=== PATIENT | female | born 1985 | race Caucasian/White ===

== ENCOUNTER 2025-07-21 21:24 | Emergency (ER) | payer SELFPAY ==
[2025-07-21 21:27] VITALS: BP 137/90; PULSE 87; RESP 16; TEMP 37.1; O2SAT 95; BMI 32.6
[2025-07-21 22:10] LABS: IDNOW Serial# 6674DD1D; Strep A Nucleic Acid Negative (Negative)
[2025-07-21 22:34] LABS: Resp Syncy Virus RNA Qual PCR NEGATIVE (Negative); SARS COV2 PCR INHOUSE NEGATIVE (Negative)
--- OUTSIDE RECORDS SUMMARY | 2025-07-21 23:35 | XMS_ITS | Encounter Summary ---
Author Organization [facility] Address [address] [facility] [address] [place] [address] Phone Care Team Providers Care Claim Taker Name Role Phone Melissa Bailey JOB BOSS Primary Care Provider [phone] Encounter Details Date Type Department Care Team (Late st Contact Info) Description 08/06/2020 Ancillary Orders [facility],Outside Imaging [address] [place] [address] System, Provider Not In, [facility] [address] [address] Social History Tobacco Use Types Packs/Day Years Used Date Smoking Tobacco: Never Assessed Comments Unknown Sex and Gender Information Value Date Recorded Sex Assigned at Not on file Legal Sex Female 6:01 PM EST Gender Identity Not on file Sexual Orientation Not on file documented as of this encounter Plan of Treatment Not on file documented as of this encounter Results * US Breast Outside (No Interpretation) (09/03/2015 12:00 AM EST) Narrative SYSTEMGENERATED, DOCUMENTATION - 08/06/2020 7:48 AM EST This study is for PACS storage only and not for interpretation. us Provider Not In System PhD IMG OUTSIDE IMAGING W /OUT INTERPRETATION Final Result documented in this encounter Visit Diagnoses Not on filedocumented in this encounter Care Teams Claim Taker Relationship Specialty Start Date End Date Melissa Bailey NP [address] [place] [address] PCP - General 07/28/20 documented as of this encounter Additional Source Comments The information contained in this document represents components of the legal health record. It is not the complete legal health record.[facility]
--- OUTSIDE RECORDS SUMMARY | 2025-07-21 23:35 | XMS_ITS | Encounter Summary ---
Author Organization [facility] Address [address] [facility] [address] [place] [address] Phone Care Team Providers Care Rehab Physician Name Role Phone Melissa Bailey POULTRY FARMWORKER Primary Care Provider Encounter Details Date Type Department Care Team (Late st Contact Info) Description 07/29/2020 Ancillary Orders Virtual Department [address] [place] [phone] Melissa Bailey NP [address] [facility] [place] [address] Social History Tobacco Use Types Packs/Day Years Used Date Smoking Tobacco: Never Assessed Comments Unknown Sex and Gender Information Value Date Recorded Sex Assigned at Not on file Legal Sex Female 6:01 PM EST Gender Identity Not on file Sexual Orientation Not on file documented as of this encounter Plan of Treatment Not on file documented as of this encounter Visit Diagnoses Not on filedocumented in this encounter Care Teams Rehab Physician Relationship Specialty Start Date End Date Melissa Bailey NP [address] [place] [id number] PCP - General 07/28/20 documented as of this encounter Additional Source Comments The information contained in this document represents components of the legal health record. It is not the complete legal health record.[facility]
--- OUTSIDE RECORDS SUMMARY | 2025-07-21 23:35 | XMS_ITS | Encounter Summary ---
Author Organization [facility] Address [address] [place] [address] Phone Care Team Providers Care Construction Carpenters Helper Name Role Phone Melissa Bailey DRAMATIC COACH Primary Care Provider [phone] Encounter Details Date Type Department Care Team (Late st Contact Info) Description 08/28/2020 Ancillary Orders Virtual Department [address] [place] [address] Melissa Bailey, DRAMATIC COACH [address] [facility] [place] [address] Breast lump on right side at 9 o'clock position Social History Tobacco Use Types Packs/Day Years Used Date Smoking Tobacco: Never Assessed Comments No Sex and Gender Information Value Date Recorded Sex Assigned at Not on file Legal Sex Female 6:01 PM EST Gender Identity Not on file Sexual Orientation Not on file documented as of this encounter Plan of Treatment Not on file documented as of this encounter Results * BI US BREAST LIMITED (BILATERAL) (08/28/2020 11:31 AM EST) Anatomical Region Laterality Modality Breast Left, Breast Right, Breast Bilateral Bila teral Ultrasound 08/28/2020 10:1 2 AM EST Impressions 08/28/2020 11:47 AM EST RIGHT BREAST: 1. Palpable concern appears to correlate with an area with complicated cysts or focally ectatic ducts, some of them with internal debris. Findings are probably benign. A six-month follow-up ultrasound is recommended. 2. Focal asymmetry in the upper-outer quadrant at 9 cm from the nipple measuring 1.1 cm appears to correlate with a 1.2 x 0.7 x 0.4 cm hypoechoic structure without internal or pedicular vascularity demonstrated with color Doppler evaluation. This could represents a breast lobule or a lymph node. Findings are probably benign. A six-month follow-up mammogram and ultrasound are recommended. LEFT BREAST: 1. Asymmetry in the upper breast at 12 cm from the nipple measuring 0.5 cm, only seen on the MLO view likely correlates with a 0.4 cm round hypoechoic structure without demonstrated internal vascularity. Findings are probably benign. A six-month follow-up mammogram and ultrasound are recommended. 2. Simple cyst at 2 o'clock position 2 cm from the nipple. Benign findings. No dedicated follow-up is needed. Bi-RADS: BI-RADS CATEGORY: 3 - Probably benign finding. Short interval follow up suggested. DENSITY: There are scattered fibroglandular densities. RIGHT RECOMMENDATION DUE DATE: 6 Months Recommendation: Right short interval follow-up LEFT RECOMMENDATION DUE DATE: 6 Months Recommendation: Left short interval follow -up Narrative 08/28/2020 11:47 AM EST History: Right breast lump at 9 o'clock position at 0.5 cm from the nipple. STUDIES: 1.Bilateral diagnostic mammography with tomosynthesis and CAD 2.Targeted ultrasound of the right breast 3.Targeted ultrasound of the left breast TECHNIQUE: Bilateral full-field digital diagnostic mammography is obtained and read in conjunction with computer-aided detection. Tomosynthesis as well as 2-D C view imaging were obtained. COMPARISON: No prior mammograms available for comparison. This is a baseline study. BREAST COMPOSITION: There are scattered areas of fibroglandular density RIGHT BREAST: 1. Triangular skin marker placed in the upper-outer quadrant of the right breast. No mammographic abnormality in the vicinity of the triangular skin marker. Targeted ultrasound was performed at location of the palpable concern, which showed small cystic changes measuring up to 0.3 cm (some with echogenic content). And a few ectatic ducts. No internal vascularity demonstrated within these cystic changes with color Doppler evaluation. 2. There is an approximately 1.1 x 0.9 cm focal asymmetry in the upper-outer quadrant of the right breast at approximately 9 cm from the nipple (best seen on the tomosynthesis MLO and tomosynthesis CC ). Targeted ultrasound was performed at location of the mammographic finding, which shows a 1.2 x 0.7 x 0.4 cm hypoechoic structure without internal or pedicular vascularity demonstrated with color Doppler evaluation. 3. No suspicious calcifications or other abnormalities are seen. LEFT BREAST: 1. There is a 0.5 cm asymmetry in the upper breast at 12 cm from the nipple seen on the full field MLO (MLO tomosynthesis image 15/, spot MLO /, which would localized it in the lateral aspect of the breast), but without correlation on the CC or XCCL images. Targeted ultrasound at the location of the mammographic finding shows a 0.4 x 0.4 x 0.4 cm round hypoechoic structure without demonstratable internal vascularity with color Doppler evaluation. 2. Incidental sonographic finding of a simple cyst measuring 1.0 x 0.4 x 1.0 cm at 2 o'clock position at 2 cm from the nipple. 3. No suspicious calcifications or other abnormalities are seen. Procedure Note Gemini Griffiths MD - 08/28/2020 History: Right breast lump at 9 o'clock position at 0.5 cm from thenipple. STUDIES: 1.Bilateral diagnostic mammography with tomosynthesis and CAD 2.Targeted ultrasound of the right breast 3.Targeted ultrasound of the left breast TECHNIQUE: Bilateral full-field digital diagnostic mammography is obtainedand read in conjunction with computer-aided detection. Tomosynthesis aswell as 2-D C view imaging were obtained. COMPARISON: No prior mammograms available for comparison. This is abaseline study. BREAST COMPOSITION: There are scattered areas of fibroglandulardensity RIGHT BREAST: 1. Triangular skin marker placed in the upper-outer quadrant of the rightbreast. No mammographic abnormality in the vicinity of the triangular skinmarker. Targeted ultrasound was performed at location of the palpableconcern, which showed small cystic changes measuring up to 0.3 cm (somewith echogenic content). And a few ectatic ducts. No internal vascularitydemonstrated within these cystic changes with color Doppler evaluation. 2. There is an approximately 1.1 x 0.9 cm focal asymmetry in theupper-outer quadrant of the right breast at approximately 9 cm from thenipple (best seen on the tomosynthesis MLO and tomosynthesis CC33/63). Targeted ultrasound was performed at location of the mammographicfinding, which shows a 1.2 x 0.7 x 0.4 cm hypoechoic structure withoutinternal or pedicular vascularity demonstrated with color Dopplerevaluation. 3. No suspicious calcifications or other abnormalities are seen. LEFT BREAST: 1. There is a 0.5 cm asymmetry in the upper breast at 12 cm from thenipple seen on the full field MLO (MLO tomosynthesis image , spot MLO2/, which would localized it in the lateral aspect of the breast), butwithout correlation on the CC or XCCL images. Targeted ultrasound at thelocation of the mammographic finding shows a 0.4 x 0.4 x 0.4 cm roundhypoechoic structure without demonstratable internal vascularity withcolor Doppler evaluation. 2. Incidental sonographic finding of a simple cyst measuring 1.0 x 0.4 x1.0 cm at 2 o'clock position at 2 cm from the nipple. 3. No suspicious calcifications or other abnormalities are seen. IMPRESSION: RIGHT BREAST: 1. Palpable concern appears to correlate with an area with complicatedcysts or focally ectatic ducts, some of them with internal debris.Findings are probably benign. A six-month follow-up ultrasound isrecommended. 2. Focal asymmetry in the upper-outer quadrant at 9 cm from the nipplemeasuring 1.1 cm appears to correlate with a 1.2 x 0.7 x 0.4 cm hypoechoicstructure without internal or pedicular vascularity demonstrated withcolor Doppler evaluation. This could represents a breast lobule or a lymphnode. Findings are probably benign. A six-month follow-up mammogram andultrasound are recommended. LEFT BREAST: 1. Asymmetry in the upper breast at 12 cm from the nipple measuring 0.5cm, only seen on the MLO view likely correlates with a 0.4 cm roundhypoechoic structure without demonstrated internal vascularity. Findingsare probably benign. A six-month follow-up mammogram and ultrasound arerecommended. 2. Simple cyst at 2 o'clock position 2 cm from the nipple. Benignfindings. No dedicated follow-up is needed. Bi-RADS: BI-RADS CATEGORY: 3 - Probably benign finding. Short intervalfollow up suggested. DENSITY: There are scattered fibroglandular densities. RIGHT RECOMMENDATION DUE DATE: 6 Months Recommendation: Right short interval follow-up LEFT RECOMMENDATION DUE DATE: 6 Months Recommendation: Left short interval follow -up us Melissa Bailey NP IMG US BREAST Final Result documented in this encounter Visit Diagnoses Diagnosis Breast lump on right side at 9 o'clock position Lump or mass in breast Breast lump on right side at 9 o'clock position Lump or mass in breast documented in this encounter Care Teams Construction Carpenters Helper Relationship Specialty Start Date End Date Melissa Bailey NP [address] [place] [id number] PCP - General 07/28/20 documented as of this encounter Additional Source Comments The information contained in this document represents components of the legal health record. It is not the complete legal health record.[facility]
--- OUTSIDE RECORDS SUMMARY | 2025-07-21 23:35 | XMS_ITS | Encounter Summary ---
Author Organization [facility] Address [address] [facility] [address] [place] [address] Phone Care Team Providers Care Neurosurgical Nurse Practitioner Name Role Phone Melissa Bailey CUTTER HEAD SHARPENER Primary Care Provider Encounter Details Date Type Department Care Team (Late st Contact Info) Description 08/29/2020 Ancillary Orders Virtual Department [address] [place] [address] Melissa Bailey NP [address] [facility] [place] [address] Follow-up exam, 3-6 months since previous exam Social History Tobacco Use Types Packs/Day Years Used Date Smoking Tobacco: Never Assessed Comments No Sex and Gender Information Value Date Recorded Sex Assigned at Not on file Legal Sex Female 6:01 PM EST Gender Identity Not on file Sexual Orientation Not on file documented as of this encounter Plan of Treatment Not on file documented as of this encounter Visit Diagnoses Diagnosis Follow-up exam, 3-6 months since previous exam Unspecified follow-up examination documented in this encounter Care Teams Neurosurgical Nurse Practitioner Relationship Specialty Start Date End Date Melissa Bailey NP [address] [place] [id number] PCP - General 07/28/20 documented as of this encounter Additional Source Comments The information contained in this document represents components of the legal health record. It is not the complete legal health record.[facility]
--- OUTSIDE RECORDS SUMMARY | 2025-07-21 23:35 | XMS_ITS | Clinical Summary ---
Author Organization [facility] Address [address] [place] [address] Care Team Providers Care Patient Portal Concierge Name Role Phone Rafa Gamez MD Primary Care Provider [phone] Allergies No known active allergies Medications sodium chloride (OCEAN) 0.65 % nasal drops/sprayIndica tions:Chronic pansinusitis 4 sprays per nostril three to four times per day. 30 mL 0 Active oxymetazoline (AFRIN) 0.05 % nasal sprayIndications: Chronic pansinusitis 2 Sprays per nostril twice daily as needed for bleeding for the next 3 days. 30 mL 0 Active acetaminophen (TYLENOL) 325 MG tabletIndications :Chronic pansinusitis Take 2 tablets (650 mg total) by mouth 4 times daily (every 6 hours) as needed for mild pain (alternate with ibuprofen every 3 hours as needed). 0 Active ibuprofen (MOTRIN) 200 MG tabletIndications :Chronic pansinusitis Take 3 tablets (600 mg total) by mouth 4 times daily (every 6 hours) as needed for mild pain. 0 Active oxyCODONE (ROXICODONE) 5 MG immediate release tabletIndications :Chronic pansinusitis Take 1 tablet (5 mg total) by mouth 4 times daily (every 6 hours) as needed for moderate pain or severe pain. Max Daily Amount: 20 mg 5 tablet 0 Active Social History Tobacco Use Types Packs/Day Years Used Date Smoking Tobacco: Never Smokeless Tobacco: Never Alcohol Use Standard Drinks/Week Comments Yes 2 (1 standard drink = 0.6 oz pur e alcohol) Comments Unknown Sex and Gender Information Value Date Recorded Sex Assigned at Not on file Legal Sex Female 8:33 AM EST Gender Identity Not on file Sexual Orientation Not on file Last Filed Vital Signs Vital Sign Reading Time Taken Comments Blood Pressure 135/69 09/28/2019 3:45 PM EST Pulse 62 09/28/2019 3:45 PM EST Temperature 37.5 C (99.5 F) 09/28/2019 2:45 PM EST Respiratory Rate 8 09/28/2019 3:45 PM EST Oxygen Saturation 96% 09/28/2019 3:45 PM EST Inhaled Oxygen Concentration - - Weight - - Height - - Body Mass Index - - Plan of Treatment Health Maintenance Due Date Last Done Comments Hepatitis C Virus Screening 1983 HIV Screening 01/27/1996 DTaP/Tdap/Td Vaccines (1 - Tdap) 2002 Hepatitis B Vaccines (1 of 3 - 19+ 3-dose series) 2002 Pap Smear (Ages 21-65) 01/27/2004 Mammogram 2023 Influenza Vaccine 03/08/2025 COVID-19 Vaccine (1 - 2023-2 5 season) 2025 HPV Vaccines (No Doses Required) Completed Pneumococcal Vaccine: Pediat izabela (0-5 Years) and At-Risk Patients (6 to 49 Years) Aged Out No longer eligible b ased on patient's age to complete this topic Insurance Advance Directives * Full Code (Latest Code Status on File) Date Activated Date Inactivated Comments 09/28/2019 10:29 AM Care Teams Patient Portal Concierge Relationship Specialty Start Date End Date Rafa Gamez MD [address] [place] [address] [address] [place] [address] PCP - General Internal Medicine 09/28/19
--- OUTSIDE RECORDS SUMMARY | 2025-07-21 23:35 | XMS_ITS | Encounter Summary ---
Author Organization [facility] Address [address] [facility] [address] [place] [address] Phone Care Team Providers Care Booking Manager Name Role Phone Melissa Bailey TAX CREDIT LEASING CONSULTANT Primary Care Provider [phone] Encounter Details Date Type Department Care Team (Late st Contact Info) Description 07/30/2020 Procedure Pass [facility] - [address] [place] [address] Social History Tobacco Use Types Packs/Day Years [...] on filedocumented in this encounter Care Teams Booking Manager Relationship Specialty Start Date End Date Melissa Bailey NP [address] [place] [id number] PCP - General 07/28/20 documented as of this encounter Additional Source Comments The information contained in this document represents components of the legal health record. It is not the complete legal health record.[facility]
--- OUTSIDE RECORDS SUMMARY | 2025-07-21 23:35 | XMS_ITS | Clinical Summary ---
Author Organization [facility] Address [address] [place] [phone] Phone Care Team Providers Care Dye Winch Operator Name Role Phone AntonioMelissa claros Abdoul TURF FARMER Primary Care Provider Social History Tobacco Use Types Packs/Day Years Used Date Smoking Tobacco: Never Assessed Education Answer Date Recorded Are you interested in more education? Not on [place] 12/03/2022 Are you concerned about learning? Not on file 12/03/2022 No 12/03/2022 No 12/03/2022 Digital Access Answer Date Recorded No 01/04/2023 No 01/04/2023 Reliable internet access at home? Not on file 01/04/2023 Device with a working camera? Not on file Comments No Sex and Gender Information Value Date Recorded Sex Assigned at Not on file Legal Sex Female 6:01 PM EST Gender Identity Not on file Sexual Orientation Not on file Plan of Treatment Health Maintenance Due Date Last Done Comments Adult Td,Tdap Booster 1985 DEPRESSION SCREENING 1995 SMOKING Hx and SMOKELESS TOBACCO SCREENING 01/27/1996 HEPATITIS C SCREENING 2001 HIV ONE-TIME SCREENING (18-6 5 YEARS) 2001 MAMMOGRAM 05/29/2023 05/29/2021, 08/28/2020 PAP SMEAR 12/17/2024 12/17/2021, 07/28/2020 INFLUENZA VACCINE (#1) 2025 7, 06/16/2016, 06/18/2015 COVID-19 VACCINE (2024-2 6 season) 2025 04/24/2021 HEPATITIS A VACCINES Aged Out No long er eligible based on patient's age to complete this topic HIB VACCINES Aged Out No longer eligi ble based on patient's age to complete this topic MENINGOCOCCAL VACCINES (ACWY) Aged Out No longer eligible based on patient's age to complete this topic MENINGOCOCCAL VACCINES (B) Aged Out N o longer eligible based on patient's age to complete this topic PNEUMOCOCCAL VACCINES (0-49 years) Aged Out No longer eligible b ased on patient's age to complete this topic Medical Devices Not on file Procedures Procedure Name Priority Date/Time Associated Diagnosis Comments PAP TEST Routine 12/17/2021 12:00 AM EDT BI MAMMOGRAM DIAGNOSTIC WITH TOMOSYNTHESIS WITH CAD (BILATERAL) Routine 05/29/2021 11:37 AM EDT Other abnormal and inconclusive findings on diagnostic imaging of breast from Last 3 Months or Most Recently Relevant to Health Maintenance Results * Pap Smear (12/17/2021 12:00 AM EDT) 12/17/2021 12/18/2021 8:4 7 AM EDT Narrative SEE NARRATIVE - 12/22/2021 3:48 PM EDT [address] [address] Insulation Board Head Saw Operator: Ashlie Thao MD DRY ICE MAKER Cytology Report FINAL DIAGNOSIS A. PAP SMEAR (SUREPATH) CE: SPECIMEN ADEQUACY: Satisfactory for evaluation; transformation zone present. INTERPRETATION: NEGATIVE FOR INTRAEPITHELIAL LESION OR MALIGNANCY. Electronically Signed Out By: TIMOTHY Sousa(ASCP) The Pap test is a screening test primarily for squamous cancers and precursors and has associated false-negative and false-positive results. New technologies such as liquid-based preparations may decrease but will not eliminate all false-negative results. Regular sampling and follow-up of unexplained clinical signs and symptoms are recommended to minimize false negative results. PROCEDURES/ADDENDA HPV Testing (Requested) Ordered Date: 12/18/2021 A. PAP SMEAR (SUREPATH) CE: Human Papilloma Virus Test Negative for high-risk human papillomavirus types 16, 18, 45 and the Other high risk probe set (Includes 31, 33, 35, 39, 51, 52, 56, 58, 59, 66, 68) by Jennifer Tracy Onclarity HR-HPV analysis. Clinical correlation is advised. This HPV test was performed at [facility], [address] [place] [address]. This test has been FDA approved for SurePath cervical cytology specimens. The accuracy and precision of this test for all other specimen sources has been verified in the Cytopathology Laboratory of the [facility] and has not been cleared or approved by the U.S. Food and Drug Administration. Clinical correlation is advised. CLINICAL HISTORY Date of Last Menstrual Period: Not Provided Menstrual History: Unknown Other Clinical Conditions: Screening Pap SPECIMEN SOURCE A: PAP SMEAR (SUREPATH) CE Patient Name: MADDIE ALCANTAR : 1985 (Age: 36) Sex: F Institution: [facility] Location: [facility] Date of Collection: 12/17/2021 Date of Reported: 12/22/2021 15:48 Results to: November Maria Fernanda Pisano November Maria Fernanda Moreland NP CYTOLOGY ORDERAB LES Final Result SEE NARRATIVE * BI MAMMOGRAM DIAGNOSTIC WITH TOMOSYNTHESIS WITH CAD (BILATERAL) (05/29/2021 11:37 AM EDT) Anatomical Region Laterality Modality Breast Left, Breast Right, Breast Bilateral Bila teral Mammography 05/29/2021 3:13 PM EDT Impressions 05/29/2021 3:21 PM EDT No mammographic change indicative of malignancy. Probably benign sonographic findings bilaterally and probably benign mammographic finding on the right. Bilateral follow-up sonography in 6 months and a right mammogram at that time recommended. No mammographic follow-up is required on the left until screening which could be performed 1 year from this study. BI-RADS CATEGORY: 3 - Probably benign finding. Short interval follow up suggested. DENSITY: There are scattered fibroglandular densities. LEFT RECOMMENDATION DUE DATE: 6 Months Left Ultrasound RIGHT RECOMMENDATION DUE DATE: 6 Months Right short interval follow-up Narrative 05/29/2021 3:21 PM EDT Bilateral full-field digital diagnostic mammography is obtained and read in conjunction with computer-aided detection. Tomosynthesis as well as 2-D C view imaging of both breasts in two planes also obtained. Comparison made to prior study of August 28, 2019. Bilateral breast ultrasound is also obtained and reported here. No dominant mass, architectural distortion, worrisome asymmetry, or suspicious calcification is identified. No skin or nipple finding of concern is appreciated. Density at the upper right breast appears less conspicuous and does not clearly appear abnormal on today's mammogram. The lobulated density at the upper outer aspect of the left breast appears unchanged. On subsequent sonography these cystlike areas in the periareolar region of the right breast appear to have resolved. The hypoechoic parallel well-circumscribed mass likely to represent fibroadenoma or less likely lymph node at the tendon clock position has not changed in size or character and appears benign but continued surveillance recommended in 6 months. The sonographic finding at the 2:00 position of the left breast 10 cm from the nipple is in unchanged configuration also consistent with lymph node or fibroadenoma and again measures 4 mm. Continued surveillance of this probably benign is also recommended. Maritza Kinney TURF FARMER IMG MG EXAMS F inal Result from Last 3 Months or Most Recently Relevant to Health Maintenance Insurance S S S S S [facility] Care Teams Dye Winch Operator Relationship Specialty Start Date End Date Melissa Bailey NP [address] [place] [phone] PCP - General 07/28/20 Additional Source Comments The information contained in this document represents components of the legal health record. It is not the complete legal health record.[facility]
--- OUTSIDE RECORDS SUMMARY | 2025-07-21 23:35 | XMS_ITS | Encounter Summary ---
Author Organization [facility] Address [address] [facility] [address] [place] [phone] Phone Care Team Providers Care Labor Standards Director Name Role Phone Melissa Bailey GRADES 1 6 TUTOR Primary Care Provider Encounter Details Date Type Department Care Team (Late st Contact Info) Description 07/30/2020 Procedure Pass [facility] - [address] [place] [address] Social History Tobacco Use Types Packs/Day Years [...] on filedocumented in this encounter Care Teams Labor Standards Director Relationship Specialty Start Date End Date Melissa Bailey NP [address] [place] [phone] PCP - General 07/28/20 documented as of this encounter Additional Source Comments The information contained in this document represents components of the legal health record. It is not the complete legal health record.[facility]
--- OUTSIDE RECORDS SUMMARY | 2025-07-21 23:35 | XMS_ITS | Encounter Summary ---
Author Organization [facility] Address [address] [facility] [address] [place] [address] Phone Care Team Providers Care Parallel Computing Software Engineer Name Role Phone Melissa Bailey SENIOR PLANNING ANALYST Primary Care Provider Encounter Details Date Type Department Care Team (Late st Contact Info) Description 09/03/2020 Ancillary Orders Virtual Department [address] [place] [address] Melissa Bailey NP [address] [facility] [place] [address] Social History Tobacco Use Types Packs/Day Years [...] on filedocumented in this encounter Care Teams Parallel Computing Software Engineer Relationship Specialty Start Date End Date Melissa Bailey NP [address] [place] [phone] PCP - General 07/28/20 documented as of this encounter Additional Source Comments The information contained in this document represents components of the legal health record. It is not the complete legal health record.[facility]
--- OUTSIDE RECORDS SUMMARY | 2025-07-21 23:35 | XMS_ITS | Encounter Summary ---
Author Organization [facility] Address [address] [facility] [address] [place] [address] Phone Care Team Providers Care Paint Stock Clerk Name Role Phone Melissa Bailey CROWD CONTROLLER Primary Care Provider Encounter Details Date Type Department Care Team (Late st Contact Info) Description 05/28/2022 Transcribe Orders Virtual Department [address] [place] [address] Faith Figueroa NP [address] [place] [phone] [email or web address] Social History Tobacco Use Types Packs/Day Years [...] on filedocumented in this encounter Care Teams Paint Stock Clerk Relationship Specialty Start Date End Date Melissa Bailey NP [address] [place] [phone] PCP - General 07/28/20 documented as of this encounter Additional Source Comments The information contained in this document represents components of the legal health record. It is not the complete legal health record.[facility]
--- OUTSIDE RECORDS SUMMARY | 2025-07-21 23:35 | XMS_ITS | Encounter Summary ---
Author Organization [facility] Address [address] [facility] [address] [place] [phone] Phone Care Team Providers Care Country Printer Apprentice Name Role Phone Melissa Bailey NEWS ANCHOR Primary Care Provider Encounter Details Date Type Department Care Team (Late st Contact Info) Description 05/11/2021 Procedure Pass [facility] - [address] [place] [address] Social History Tobacco Use Types Packs/Day Years [...] on filedocumented in this encounter Care Teams Country Printer Apprentice Relationship Specialty Start Date End Date Melissa Bailey NP [address] [place] [phone] PCP - General 07/28/20 documented as of this encounter Additional Source Comments The information contained in this document represents components of the legal health record. It is not the complete legal health record.[facility]
--- OUTSIDE RECORDS SUMMARY | 2025-07-21 23:35 | XMS_ITS | Encounter Summary ---
Author Organization [facility] Address [address] [facility] [address] [place] [phone] Phone Care Team Providers Care Industrial Trainer Name Role Phone Melissa Bailey CHIEF MERCHANDISING OFFICER Primary Care Provider Encounter Details Date Type Department Care Team (Late st Contact Info) Description 05/11/2021 Procedure Pass [facility] - [address] [place] [address] Social History Tobacco Use Types Packs/Day Years [...] on filedocumented in this encounter Care Teams Industrial Trainer Relationship Specialty Start Date End Date Melissa Bailey NP [address] [place] [phone] PCP - General 07/28/20 documented as of this encounter Additional Source Comments The information contained in this document represents components of the legal health record. It is not the complete legal health record.[facility]
== END 2025-07-22 00:37 | disposition left against medical advice (07) ==
PROVIDERS: Emergency Provider Emergency Medicine Emergency Medical Services
DX: J02.9 Acute pharyngitis, unspecified (principal); Z53.21 Procedure and treatment not carried out due to patient leaving prior to being seen by health care provider; Z03.818 Encounter for observation for suspected exposure to other biological agents ruled out
CPT/HCPCS: 87637; 87651; 99281